=== PATIENT | male | born 2000 | race Asian ===

== ENCOUNTER 2022-11-27 19:29 | Inpatient (IN) | payer OTHER ==
[~2022-11-27] VITALS: Ht 160 cm; Wt 93.6 kg
[2022-11-27 20:29] LABS: HEMATOCRIT 45.3 % (42.0-52.0); HEMOGLOBIN 15.5 g/dl (13.5-17.5); MEAN CORPUSCULAR HEMOGLOBIN 29.5 pg (27.0-33.0); MEAN CORPUSCULAR HGB CONC 34.2 g/dl (32.0-36.5); MEAN CORPUSCULAR VOLUME 86.3 fl (80.0-96.0); PLATELET COUNT, AUTOMATED 239 10^3/uL (150-450); RED BLOOD COUNT 5.25 10^6/uL (4.30-6.10); WHITE BLOOD COUNT 6.7 10^3/uL (4.0-10.0)
[2022-11-27 20:56] LABS: AMPHETAMINES LEVEL URINE NEGATIVE (NEGATIVE); BENZODIAZEPINES URINE NEGATIVE (NEGATIVE)
[2022-11-27 20:57] LABS: BARBITURATES URINE NEGATIVE (NEGATIVE); COCAINE METABOLITE URINE NEGATIVE (NEGATIVE); METHADONE URINE NEGATIVE (NEGATIVE); OPIATES URINE NEGATIVE (NEGATIVE); PHENCYCLIDINE URINE NEGATIVE (NEGATIVE)
[2022-11-27 20:57] LABS: ETHYL ALCOHOL (ETHANOL) < 0.003 % (0.000-0.010)
[2022-11-27 20:58] LABS: ACETAMINOPHEN LEVEL < 2.0 UG/ML (10.0-20.0); SALICYLATE LEVEL < 3.0 MG/DL (<30)
[2022-11-27 20:59] LABS: ALBUMIN 4.3 G/DL (3.2-5.2); ALKALINE PHOSPHATASE 46 U/L (46-116); ALT/SGPT 105 U/L (7.0-40); AST/SGOT 45 U/L (<34); BILIRUBIN,DIRECT 0.2 MG/DL (<0.4); BILIRUBIN,TOTAL 0.5 MG/DL (0.3-1.2); BLOOD UREA NITROGEN 10 MG/DL (9-23); CALCIUM LEVEL 9.5 MG/DL (8.5-10.1); CARBON DIOXIDE LEVEL 28 MMOL/L (20-31); CHLORIDE LEVEL 102 MMOL/L (98-107); CREATININE FOR GFR 1.03 MG/DL (0.70-1.30); GLOMERULAR FILTRATION RATE > 60.0 (>60); GLUCOSE, FASTING 85 MG/DL (60-100); POTASSIUM SERUM 3.6 MMOL/L (3.5-5.1); SODIUM LEVEL 138 MMOL/L (136-145); TOTAL PROTEIN 7.7 G/DL (5.7-8.2)
[2022-11-27 21:01] LABS: THYROID STIMULATING HORMONE 2.746 uIU/ML (0.55-4.78)
[2022-11-27 21:13] LABS: CANNABINOIDS URINE NEGATIVE (NEGATIVE)
[2022-11-28] MEDS ORDERED: HOME MED LIST COMPLETE! XX SCH (00:50)
[2022-11-28] MEDS: NICOTINE 21MG/24HR 1 EA TRANSDERMAL TD SCH (09:00)
[2022-11-28] MEDS ORDERED: traZODone 50 MG TAB PO PRN (12:55)
[2022-11-28] MEDS ORDERED: MOM 30ML SUSPENSION UDC PO PRN (12:55)
[2022-11-28] MEDS ORDERED: MAALOX 30 ML SUSP *UDC PO PRN (12:55)
[2022-11-28 15:48] VITALS: BP 142/64
[2022-11-29 06:38] VITALS: BP 109/64
[2022-11-29] MEDS: NICOTINE 21MG/24HR 1 EA TRANSDERMAL TD SCH (08:21)
[2022-11-29 08:36] LABS: HEMOGLOBIN A1c 5.8 % (4.0-6.0)
[2022-11-29 08:40] LABS: ALKALINE PHOSPHATASE 45 U/L (46-116); ALT/SGPT 111 U/L (7.0-40); AST/SGOT 54 U/L (<34); BILIRUBIN,DIRECT 0.2 MG/DL (<0.4); BILIRUBIN,TOTAL 0.5 MG/DL (0.3-1.2); TOTAL PROTEIN 7.4 G/DL (5.7-8.2)
[2022-11-29 08:41] LABS: CHOLESTEROL RISK RATIO 4.21 (<5); HDL CHOLESTEROL 42.9 MG/DL (>40); LDL CHOLESTEROL 108.3 MG/DL (<100)
[2022-11-29 08:54] LABS: HEPATITIS B SURFACE ANTIGEN NEGATIVE (NEGATIVE)
[2022-11-29 09:16] LABS: HEPATITIS B CORE ANTIBODY IGM NEGATIVE (NEGATIVE)
[2022-11-29 13:20] LABS: INR 0.93; PROTHROMBIN TIME 12.7 SECONDS (12.5-14.5)
[2022-11-29 16:21] VITALS: BP 130/77
[2022-11-30 06:22] VITALS: BP 120/63
[2022-11-30] MEDS: NICOTINE 21MG/24HR 1 EA TRANSDERMAL TD SCH (09:00)
[2022-11-30 18:26] VITALS: BP 138/93
[2022-12-01 06:32] VITALS: BP 123/64
[2022-12-01] MEDS: NICOTINE 21MG/24HR 1 EA TRANSDERMAL TD SCH (08:46)
== END 2022-12-01 10:57 | disposition home or self-care (01) | DRG 881 ==
LOC: M ED 19:29 → M ED INP 11-28 12:53 → M PSY 11-28 15:49
PROVIDERS: ADMIT Student in an Organized Health Care Education/Training Program; ATTEND Student in an Organized Health Care Education/Training Program
DX: F32.A Depression, unspecified (principal); R45.851 Suicidal ideations; F17.290 Nicotine dependence, other tobacco product, uncomplicated; Z20.822 Contact with and (suspected) exposure to COVID-19; Z83.3 Family history of diabetes mellitus; Z63.8 Other specified problems related to primary support group